=== PATIENT | male | born 1955 ===

== ENCOUNTER 2016-11-16 10:06 | Day surgery (SDC) | payer MEDICAID ==
[2016-11-16 10:29] VITALS: BMI 39.1
[2016-11-16] MEDS ORDERED: MethylPREDNISolone Depo 40 mg/ml Inj ONE (10:53)
[2016-11-16] MEDS ORDERED: Lidocaine 1% Inj (20ml) ONE (10:54)
[2016-11-16] MEDS ORDERED: Bupivacaine HCl 0.25% PF (10 ml) Inj ONE (10:54)
[2016-11-16] MEDS ORDERED: Iohexol 300 10 ML ONE (10:54)
[2016-11-16] MEDS ORDERED: Midazolam 2 MG/2 ML VIAL ONE (11:27)
[2016-11-16] MEDS ORDERED: Lactated Ringer's 1,000 ML IV ONE (11:30)
[2016-11-16] MEDS ORDERED: Lidocaine 1% Inj (20ml) IJ ONE (11:40)
[2016-11-16] MEDS ORDERED: methylPREDNISolone Depo 80 mg/ml Inj IM ONE (11:40)
[2016-11-16] MEDS ORDERED: Iohexol 300 10 ML IJ ONE (11:40)
[2016-11-16] MEDS ORDERED: Lactated Ringer's 1,000 ML IV SCH (11:53)
[2016-11-16] MEDS ORDERED: HYDROmorphone 0.5 mg/0.5 ml ISec IVP PRN (11:53)
--- NOTE | 2016-11-16 12:32 | OP ---
PROCEDURE DATE: 11/16/2016 PROCEDURE: Caudal epidural under fluoroscopic guidance. PREOPERATIVE DIAGNOSIS: Lumbar radiculopathy. POSTOPERATIVE DIAGNOSIS: Lumbar radiculopathy. COMPLICATIONS: None. EXPECTED BLOOD LOSS: None. After informed consent was obtained, the patient was brought to the OR and placed on the table in prone position. All pressure points were padded, and sedation was administered by anesthesia. The lumbosacral spine was then prepped with iodine x 3 and draped in normal sterile fashion. One mL of 1% lidocaine was used for a skin wheal using a 25 gauge needle. X-ray in the AP and lateral views was used identify the sacral hiatus. A 17-gauge Tuohy epidural needle was advanced under lateral view to graves the sacrococcygeal ligament. There was no paresthesia during placement of the needle. After negative aspiration for heme or CSF, 1 mL of Omnipaque 300 contrast dye was used to delineate the epidural space. After negative aspiration for heme or CSF , 20 mL of 0.5% lidocaine and Depo-Medrol was easily instilled in the caudal epidural space. Depo-Medrol 80 mg was used for the case. The patient had no paresthesia during the procedure. The patient was brought to stage II recovery room with stable vital signs and bilateral lower extremity motor and sensory intact. Edvin Nolasco MD cc: [id number] TT: 11/16/2016 12:31:57 en MTDD
[2016-11-16 12:43] VITALS: PULSE 55; RESP 18; O2SAT 96
[2016-11-16 13:04] VITALS: BP 147/88; TEMP 97.5
--- NOTE | 2016-11-16 14:51 | RAD ---
PROCEDURE: Fluoroscopy up to 1 hr. HISTORY: EPIDURAL COMPARISON: None TECHNIQUE: Standard protocol for this study/examination. FINDINGS: Total fluoroscopic time (continuous mode) utilized during the procedure: 13.4 seconds. Submitted images from the current procedure: IMPRESSION: 1.0 Less than 1 hr fluoroscopic time utilized during performance of the procedure.
== END 2016-11-16 13:33 | disposition home or self-care (01) ==
LOC: H.OPSURG 10:06
PROVIDERS: ATTEND Anesthesiology Pain Medicine
DX: M54.16 Radiculopathy, lumbar region (principal); E11.9 Type 2 diabetes mellitus without complications; E78.5 Hyperlipidemia, unspecified; I10 Essential (primary) hypertension; I25.10 Atherosclerotic heart disease of native coronary artery without angina pectoris